=== PATIENT | male | born 1950 | race Caucasian/White ===

== ENCOUNTER 2019-06-20 07:22 | Day surgery (SDC) | payer MEDICARE, BC, MEDICAID ==
[~2019-06-20] VITALS: Ht 177.8 cm; Wt 75.0 kg
[2019-06-20 07:45] LABS: HEMATOCRIT 48.2 % (42.0-54.0); HEMOGLOBIN 16.3 g/dL (13.5-17.5); MCH 31.6 pg (26.0-34.0); MCHC 33.8 g/dL (31.0-37.0); MCV 93.4 fL (80.0-100.0); MEAN PLATELET VOLUME 9.2 fL (7.4-10.4); RBC 5.16 10x6/uL (4.20-6.10); RDW 13.9 % (11.5-14.5); WBC 5.4 10x3/uL (4.8-10.8)
[2019-06-20] MEDS ORDERED: ISENTRESS400 MG PO (08:07)
[2019-06-20] MEDS ORDERED: BENICAR20 MG PO (08:08)
[2019-06-20] MEDS ORDERED: PREZISTA800 MG PO (08:08)
[2019-06-20] MEDS ORDERED: NORVIR100 M1 PO (08:08)
[2019-06-20 08:18] VITALS: BP 148/85; Ht 177.8 cm; Wt 75.0 kg
--- NOTE | 2019-06-20 10:07 | NUR ---
0941 IV DC'D. CATHETER TIP INTACT. NO BLEEDING AT SITE. BANDAID APPLIED.
--- NOTE | 2019-06-22 16:44 | OP ---
PATIENT NAME: EMILI CHAVEZ MEDICAL RECORD: [id number] :48 LOCATION:[facility] ADMISSION DATE: SURGEON: SHER CISNEROS DO DATE OF OPERATION: 06/20/2019 PROCEDURE: Colonoscopy with polypectomy. INDICATIONS FOR PROCEDURE: Screening for colorectal cancer. SCOPE: Olympus video pediatric colonoscope. MEDICATIONS: Propofol 400 mg IV per anesthesia. ESTIMATED BLOOD LOSS: Minimal. COMPLICATIONS: None. FINDINGS: Informed consent was given. The patient was made comfortable with the above medication. After reaching an adequate level of sedation by slow IV push, the patient was placed on his left side. A digital rectal examination was performed and was normal. The endoscope was then advanced under direct visualization through the rectum to the cecum, confirmed by the presence of the appendiceal orifice and ileocecal valve. The endoscope was slowly withdrawn and mucosa was carefully inspected. There was evidence of mild diverticulosis involving the sigmoid colon. There were 3 polyps visualized on today's examination. The first was a benign appearing sessile polyp located in the ascending colon. It measured approximately 2-3 mm in diameter and was removed using hot forceps. In the transverse colon, there were two separate benign-appearing sessile polyps, which ranged in size from 2-5 mm in diameter. They were both removed using hot forceps. Retroflexion was performed in the rectum with visualization of grade I internal hemorrhoids without bleeding. The endoscope was then withdrawn from the patient. The patient tolerated the procedure well and there were no complications. IMPRESSION: 1. Three polyps as described above, removed using hot forceps. 2. Mild diverticulosis without diverticulitis involving the sigmoid colon. 3. Grade I internal hemorrhoids without bleeding. PLAN AND RECOMMENDATIONS: 1. Discharge home when recovery parameters are met. 2. Follow up biopsy specimen results. 3. High fiber diet. 4. Continue current medications. 5. Recall colonoscopy in 5 years. TRANSINT:[id number] Voice Confirmation ID: [id number] DOCUMENT ID: [id number] OPERATIVE REPORT [id number] EMILI CHAVEZ SHER CISNEROS DO at 1644 CC: [id number] DICTATION DATE: 06/20/19906 [employer] SUPERVISOR: 06/20/19 1114 [facility] 06/20/19 [place] [id number]
== END 2019-06-20 09:48 | disposition home or self-care (01) ==
LOC: D.OPS 07:22
PROVIDERS: Anesthesiology; ATTEND Internal Medicine Gastroenterology
DX: K63.5 Polyp of colon (principal); K57.90 Diverticulosis of intestine, part unspecified, without perforation or abscess without bleeding; K64.0 First degree hemorrhoids; Z12.11 Encounter for screening for malignant neoplasm of colon

== ENCOUNTER 2019-06-27 05:57 | Day surgery (SDC) | payer MEDICARE, BC, MEDICAID ==
[~2019-06-27] VITALS: Ht 177.8 cm; Wt 75.0 kg
[~2019-06-27 05:57] MED LIST: BENICAR20 MG PO; ISENTRESS400 MG PO; NORVIR100 M1 PO; PREZISTA800 MG PO
[2019-06-27 06:25] LABS: BASOPHILS 0.7 % (0-2); EOSINOPHILS 1.9 % (0-7); HEMATOCRIT 45.6 % (42.0-54.0); HEMOGLOBIN 14.8 g/dL (13.5-17.5); IMMATURE GRANULOCYTES 0.4 % (0-5); LYMPHOCYTES 24.4 % (15-50); MCH 30.9 pg (26.0-34.0); MCHC 32.5 g/dL (31.0-37.0); MCV 95.2 fL (80.0-100.0); MEAN PLATELET VOLUME 9.3 fL (7.4-10.4); MONOCYTES 12.1 % (2-11); NEUTROPHILS 60.5 % (40-80); RBC 4.79 10x6/uL (4.20-6.10); WBC 5.7 10x3/uL (4.8-10.8)
[2019-06-27 06:31] LABS: PLATELET COUNT 229 10x3/uL (130-400)
[2019-06-27 07:03] LABS: APTT 26.5 SECONDS (22.8-39.4); INR 1.05 (0.85-1.17); PROTIME 13.2 SECONDS (11.6-15.0)
[2019-06-27 07:20] LABS: ALBUMIN 3.4 g/dL (3.4-5.0); ANION GAP 12.5 mmol/L (8-16); BILIRUBIN - TOTAL 0.58 mg/dL (0.2-1.3); CALCIUM 8.2 mg/dL (8.5-10.1); CARBON DIOXIDE 28.9 mmol/L (21.0-32.0); CREATININE - SERUM 1.9 mg/dL (0.6-1.3); POTASSIUM - SERUM 4.4 mmol/L (3.5-5.1); PROTEIN - SERUM 6.8 g/dL (6.4-8.2)
[2019-06-27 07:21] VITALS: BP 129/71; Ht 177.8 cm; Wt 75.0 kg
--- NOTE | 2019-06-27 10:38 | NUR ---
0850 IV DC'D. CATHETER TIP INTACT. NO BLEEDING AT SITE. BANDAID APPLIED.
--- NOTE | 2019-06-27 17:17 | OP ---
PATIENT NAME: EMILI CHAVEZ MEDICAL RECORD: [id number] :48 LOCATION:[facility] ADMISSION DATE: SURGEON: SHER CISNEROS DO DATE OF OPERATION: 06/27/2019 PROCEDURE: EGD with biopsies. INDICATIONS FOR PROCEDURE: GERD. SCOPE: Olympus video gastroscope. MEDICATIONS: Propofol 170 mg IV per anesthesia. ESTIMATED BLOOD LOSS: Minimal. COMPLICATIONS: None. FINDINGS: Informed consent was given. The patient was made comfortable with the above medication. After reaching an adequate level of sedation by slow IV push, the patient was placed on his left side. The endoscope was advanced under direct visualization through the mouth to the second portion of the duodenum with ease. The entire esophagus appeared normal. Random cold forceps biopsies were taken from the midesophagus to submit for histopathology and to rule out the presence of eosinophils. At the GE junction, there were minor changes consistent with LA class A reflux-induced esophagitis. Cold forceps biopsies were taken from the squamocolumnar junction to submit for histopathology. The endoscope was advanced beyond the GE junction into the stomach and retroflexed to view the cardia and fundus, which appeared normal. Throughout the body of the stomach as well as the antrum and prepyloric regions, there were a few areas of patchy erythema and granularity consistent with possible mild gastritis. Cold forceps, biopsies were taken from the antrum and incisura to submit for histopathology and to rule out the presence of H. pylori. The endoscope was advanced beyond the pylorus into the duodenum, which appeared normal to the second portion. The endoscope was withdrawn from the patient. The patient tolerated the procedure well and there were no complications. IMPRESSION: 1. LA class A reflux-induced esophagitis. 2. Possible mild gastritis. PLAN AND RECOMMENDATIONS: 1. Discharge home when recovery parameters are met. 2. Follow up biopsy specimen results. 3. GERD diet and reflux precautions. 4. Continue current medications. 5. Okay to continue as needed proton pump inhibitor or H2 abhilash for occasional reflux and heartburn symptoms. 6. Any further recall will be dependent on results of biopsy specimens. TRANSINT:[id number] Voice Confirmation ID: [id number] DOCUMENT ID: [id number] OPERATIVE REPORT [id number] EMILI CHAVEZ SHER CISNEROS DO at 1717 CC: [id number] DICTATION DATE: 06/27/19 0818 BACKUP OPERATOR: 06/27/19 0943 [facility] 06/27/19 [place] [id number] [place] [id number]
== END 2019-06-27 08:57 | disposition home or self-care (01) ==
LOC: D.OPS 05:57
PROVIDERS: Anesthesiology; ATTEND Internal Medicine Gastroenterology
DX: K21.0 Gastro-esophageal reflux disease with esophagitis (principal); K29.70 Gastritis, unspecified, without bleeding

== ENCOUNTER → 2019-07-26 10:24 | Outpatient (CLI) | payer MEDICARE, BC, MEDICAID ==
[2019-06-27 07:21] VITALS: BMI 23.7
[2019-07-27 15:10] LABS: IMMUNOFIXATION Note: (()); IMMUNOFIXATION - URINE Note: (()); IMMUNOGLOBULIN A 194 mg/dL (61-437); IMMUNOGLOBULIN G 842 mg/dL (700-1600); IMMUNOGLOBULIN M 58 mg/dL (20-172)
== END | disposition home or self-care (01) ==
LOC: D.US 10:24
PROVIDERS: ATTEND Nurse Practitioner Family
DX: B20 Human immunodeficiency virus [HIV] disease (principal); I12.9 Hypertensive chronic kidney disease with stage 1 through stage 4 chronic kidney disease, or unspecified chronic kidney disease; N18.3 Chronic kidney disease, stage 3 (moderate); Z68.22 Body mass index [BMI] 22.0-22.9, adult

== ENCOUNTER 2021-02-27 19:27 | Emergency (ER) | payer MEDICARE, BC, MEDICAID ==
[~2021-02-27] VITALS: Ht 177.8 cm; Wt 70.7 kg
[2021-02-27 19:42] VITALS: Ht 177.8 cm; Wt 70.7 kg
[2021-02-27 19:59] LABS: BASOPHILS 0.7 % (0-2); EOSINOPHILS 1.5 % (0-7); HEMATOCRIT 46.6 % (42.0-54.0); HEMOGLOBIN 15.5 g/dL (13.5-17.5); MCH 31.5 pg (26.0-34.0); MCHC 33.2 g/dL (31.0-37.0); MCV 94.7 fL (80.0-100.0); MEAN PLATELET VOLUME 7.4 fL (7.4-10.4); MONOCYTES 10.9 % (2-11); NEUTROPHILS 51.9 % (40-80); PLATELET COUNT 235 10x3/uL (130-400); RBC 4.92 10x6/uL (4.20-6.10); RDW 13.7 % (11.5-14.5)
[2021-02-27 20:07] LABS: APTT 25.2 SECONDS (22.8-39.4); CALC OSMOLALITY 279 mosm/kg (275-300); CALCIUM 8.4 mg/dL (8.5-10.1); CARBON DIOXIDE 27.1 mmol/L (21.0-32.0); CHLORIDE - SERUM 106 mmol/L (98-107); CREATININE - SERUM 1.4 mg/dL (0.6-1.3); GLUCOSE 99 mg/dL (74-106); INR 1.09 (0.85-1.17); POTASSIUM - SERUM 3.7 mmol/L (3.5-5.1); SODIUM 140 mmol/L (136-145); UREA NITROGEN 14 mg/dL (7-18); eGFR NON AFRICAN AMERICAN 53 mL/min (90-120)
[2021-02-27 20:24] LABS: ALBUMIN 3.8 g/dL (3.4-5.0); ALKALINE PHOSPHATASE 83 U/L (30-120); ALT (SGPT) 29 U/L (10-68); CKMB 0.8 U/L (0.0-3.6); CREATINE KINASE 66 UL (21-232); MAGNESIUM - SERUM 2.2 mg/dL (1.8-2.4); PROTEIN - SERUM 6.9 g/dL (6.4-8.2); THYROID STIMULATING HORMONE 4.27 uIU/mL (0.36-3.74); TROPONIN-I < 0.017 ng/mL (0.000-0.060)
[2021-02-27 21:15] VITALS: BP 127/80
== END 2021-02-27 20:55 | disposition home or self-care (01) ==
LOC: D.ER 19:27
PROVIDERS: Family Medicine
DX: N28.9 Disorder of kidney and ureter, unspecified (principal); R20.0 Anesthesia of skin; R94.6 Abnormal results of thyroid function studies; I10 Essential (primary) hypertension; K21.9 Gastro-esophageal reflux disease without esophagitis